=== PATIENT | male | born 1990 ===

== ENCOUNTER 2016-11-04 11:29 | Emergency (ER) | payer OTHER ==
--- NOTE | 2016-11-04 12:21 | UC ---
Throat Pain/Nasal Dago HPI - HPI Summary HPI Summary: complaint nasal congestion and cough started approx4 days ago sore throat productive cough with green sputum fever and chills feels short of breath sometimes and albuterol not imrpoving his breathing hears wheezing sometimes sometimes uncontrolled coughing a tnight taking dayquil/nyquil with some relief denies N/V/D, muscle achiness - History of Current Complaint Chief Complaint: UCRespiratory Stated Complaint: RESP ISSUE Hx Obtained From: Patient - Allergies/Home Medications Allergies/Adverse Reactions: Allergies Allergy/AdvReac Type Severity Reaction Status Date / Time No Known Allergies Allergy Verified 11/04/16 12:04 Home Medications: Home Medications Albuterol HFA INHALER* [Ventolin HFA Inhaler*] 1 puff INH MONTHLY PRN 11/04/16 [ History Confirmed 11/04/16] Betamethasone Dipropionate (To [Betamethasone Dipropionat] 1 applic TOPICAL DAILY PRN 11/04/16 [History Confirmed 11/04/16] Fluticasone Propionate (Nasal) [Allergy Relief] 1 spray NASAL DAILY PRN [History Confirmed 11/04/16] Ibuprofen TAB* [Advil TAB*] 1 tab PO TID PRN 11/04/16 [History Confirmed ] Montelukast Sodium TAB* [Singulair 5 mg TAB*] 1 tab PO DAILY PRN 11/04/16 [ History Confirmed 11/04/16] PMH/Surg Hx/FS Hx/Imm Hx Previously Healthy: Yes Endocrine History Of: Denies: Diabetes, Thyroid Disease Cardiovascular History Of: Denies: Cardiac Disorders, Hypertension Respiratory History Of: Reports: Asthma Denies: COPD GI/ History Of: Denies: Ulcer - Surgical History Surgical History: None - Family History Known Family History: Negative: Cardiac Disease, Hypertension, Diabetes - Social History Occupation: Student Alcohol Use: Rare Substance Use Type: None Smoking Status (MU): Never Smoked Tobacco Review of Systems Constitutional: Fever Skin: Negative Eyes: Negative ENT: Sore Throat, Nasal Discharge Respiratory: Cough Cardiovascular: Negative Gastrointestinal: Negative Genitourinary: Negative Motor: Negative Neurovascular: Negative Musculoskeletal: Negative Neurological: Negative Psychological: Negative All Other Systems Reviewed And Are Negative: Yes Physical Exam Triage Information Reviewed: Yes Appearance: No Pain Distress, Well-Nourished Vital Signs: Initial Vital Signs Temp 100.8 F 11/04/16 12:08 Pulse 109 11/04/16 12:08 Resp 18 11/04/16 12:08 BP 131/88 11/04/16 12:08 Pulse Ox 98 11/04/16 12:08 Vital Signs Reviewed: Yes Eyes: Positive: Conjunctiva Clear ENT: Positive: Pharyngeal erythema, Nasal congestion, Nasal drainage, TMs normal Neck: Positive: No Lymphadenopathy Respiratory: Positive: No respiratory distress, No accessory muscle use, Wheezing - throughout all mathis Cardiovascular: Positive: No Murmur, Pulses Normal, Tachycardia Abdomen Description: Positive: Nontender, Soft Bowel Sounds: Positive: Present Musculoskeletal: Positive: No Edema Neurological: Positive: Alert Psychological Exam: Normal Skin Exam: Normal Re-Evaluation - Re-Evaluation First Eval Change: Improved - less wheezing throughout - rhonchi in LLL Throat Pain/Nasal Course/Dx - Course Course Of Treatment: exam completed. duoneb effective- rhonchi in LLL will treat with zithromax and prednisone - Differential Dx/Diagnosis Differential Diagnosis/HQI/PQRI: Influenza, URI, Other - asthma exacerbation Provider Diagnoses: asthma exacerbation Discharge - Discharge Plan Condition: Stable Disposition: HOME Prescriptions: Azithromycin TAB* [Zithromax TAB (Z-RAKESH) 250 mg #6 tabs] 2 tab PO .TODAY, THEN 1 DAILY #1 rakesh Benzonatate CAP* [Tessalon 100 MG CAP*] 100 mg PO TID PRN #30 cap PRN Reason: Cough predniSONE TAB* [Deltasone TAB*] 50 mg PO DAILY #5 tab Patient Education Materials: Asthma (ED) Referrals: No Primary Care Phys,NOPCP [Primary Care Provider] - [facility] [Outside] Additional Instructions: Your blood pressure is pre-hypertensive reading. Please contact your primary care provider within 1 day -4 weeks for further evaluation. Please take antibiotic and prednisone as directed Use your albuterol inhaler every 4-6 hours when needed for wheezing, shortness of breath or uncontrolled coughing. Increase fluids and rest Take acetaminophen or ibuprofen for fever or pain Please review your discharge instructions. If your symptoms do not improve please call your primary care provider or return to urgent care.
[2016-11-04] MEDS ORDERED: Acetaminophen TAB* 325 MG PO ONE (12:24)
[2016-11-04] MEDS ORDERED: Albuterol/Ipratropium NEB.SOL* Albuterol 2.5 MG/Ipratropium 0.5 MG 3 ML INH ONE (12:24)
== END 2016-11-04 13:58 | disposition home or self-care (01) ==
LOC: UCEAST 11:29
DX: J45.901 Unspecified asthma with (acute) exacerbation (principal)
CPT/HCPCS: 87502; 99202; A9270-GY; G0463